=== PATIENT | female | born 1980 | race Caucasian/White ===

== ENCOUNTER 2017-05-04 09:18 | Emergency (ER) | payer OTHER ==
[2017-05-04 09:30] VITALS: BMI 41.1
[2017-05-04 09:33] VITALS: BP 107/83; TEMP 98.5
--- NOTE | 2017-05-04 10:15 | C.PDOC ---
History Of Present Illness 36F hx of arthritis and chronic pain knees c/o right knee pain that started after having intercourse last night. she took naproxen but did not help. she takes percocet for her chronic pain but says she is out of this medication. Time Seen by Provider: 05/04/17 10:08 Chief Complaint (Nursing): Lower Extremity Problem/Injury Past Medical History Vital Signs: Last Vital Signs Temp 98.5 F 05/04/17 09:31 Pulse 80 05/04/17 10:55 Resp 16 05/04/17 10:55 BP 107/83 05/04/17 09:31 Pulse Ox 100 05/04/17 10:55 - Medical History PMH: Anemia, Arthritis, Hypercholesterolemia, Sleep Apnea Denies: Diabetes, Hepatitis, HIV, HTN, Chronic Kidney Disease, Seizures, Sexually Transmitted Disease Surgical History: Endoscopy - [facility] Procedures ESOPHAGOGASTRODUODENOSCOPY [EGD] W/CLOSED BIOPSY (08/09/13) LAPAROSCOPIC VERTICAL (SLEEVE) GASTRECTOMY (12/01/13) OTHER GASTROSCOPY (12/01/13) Family History: States: Other Other Family History: nc - Social History Hx Tobacco Use: No Hx Alcohol Use: No Hx Substance Use: No - Immunization History Hx Tetanus Toxoid Vaccination: No Hx Influenza Vaccination: No Hx Pneumococcal Vaccination: No Review Of Systems Constitutional: Negative for: Fever, Chills Cardiovascular: Negative for: Chest Pain Respiratory: Negative for: Shortness of Breath Gastrointestinal: Negative for: Vomiting Neurological: Negative for: Weakness, Numbness, Headache Physical Exam - Physical Exam Appears: Well, Non-toxic, No Acute Distress Skin: Warm, Dry Cardiovascular: Rhythm Regular Respiratory: No Accessory Muscle Use Extremity: No Deformity, No Swelling, Other (right knee ttp anteriorly. no erythema, swelling, or warmth. rom nl but induces pain. strength/sensation intact in RLE. DP pulse 2+.) ED Course And Treatment O2 Sat by Pulse Oximetry: 98 Disposition - Disposition Referrals: Jean Pierre Morel MD [Staff Provider] - Disposition: HOME/ ROUTINE Disposition Time: 10:40 Condition: GOOD Additional Instructions: Please follow up with the orthopedic doctor. Return to the ER for any worsening symptoms or for any other concerns. Forms: [facility] ([employer]), General Discharge Instructions - Clinical Impression Clinical Impression: Knee pain
[2017-05-04 11:07] VITALS: PULSE 80; RESP 16
--- NOTE | 2017-05-04 13:16 | RAD ---
PROCEDURE: Right Knee Radiographs. HISTORY: pain COMPARISON: None. FINDINGS: BONES: No evidence of acute fracture or dislocation. There is periosteal thickening noted at the proximal portion of the right fibula of uncertain etiology. JOINTS: Mild osteoarthritic changes and small lateral marginal osteophyte lipping are noted. JOINT EFFUSION: None. OTHER FINDINGS: None. IMPRESSION: No evidence of acute fracture or dislocation. Mild osteoarthritic changes. Periosteal thickening noted at the visualized portion of the proximal right fibula
[2017-05-06 18:53] VITALS: O2SAT 98
== END 2017-05-04 10:55 | disposition home or self-care (01) ==
LOC: C.ER 09:18
DX: M25.561 Pain in right knee (principal)
CPT/HCPCS: 73562; 96372; 99284; J1885

== ENCOUNTER 2018-03-09 15:22 | Emergency (ER) | payer OTHER ==
[2018-03-09 15:22] VITALS: BMI 41.1
[2018-03-09] MEDS ORDERED: Sodium Chloride 0.9% 1,000 ML IV ONE (15:53)
[2018-03-09] MEDS ORDERED: Sodium Chloride 0.9% 1,000 ML ONE (16:15)
--- NOTE | 2018-03-09 16:28 | C.PDOC ---
History Of Present Illness 37 y/o female presents to the ER complaining of abdominal pain which has become progressively worse over the past few days. Patient states that she was started on Levaquin by PMD for recently diagnosed colitis.Patient reports that she feels nauseous. Denies having vomiting, fever,chills, dysuria, and hematuria. <Vince Arcos - Last Filed: 03/10/18 18:57> <Ric Rodriguez - Last Filed: 03/10/18 03:26> History Per: Patient History/Exam Limitations: no limitations Onset/Duration Of Symptoms: Days Current Symptoms Are (Timing): Still Present Severity: Moderate <Vince Arcos - Last Filed: 03/10/18 18:57> Time Seen by Provider: 03/09/18 15:41 Chief Complaint (Nursing): Abdominal Pain Past Medical History Vital Signs: Last Vital Signs Temp 98.5 F 03/10/18 01:04 Pulse 72 03/10/18 01:04 Resp 16 03/10/18 01:04 BP 94/58 L 03/10/18 01:04 Pulse Ox 99 03/10/18 01:04 - [facility] Procedures ESOPHAGOGASTRODUODENOSCOPY [EGD] W/CLOSED BIOPSY (08/09/13) LAPAROSCOPIC VERTICAL (SLEEVE) GASTRECTOMY (12/01/13) OTHER GASTROSCOPY (12/01/13) <Ric Rodriguez - Last Filed: 03/10/18 03:26> Reviewed: Historical Data, Nursing Documentation, Vital Signs Vital Signs: Last Vital Signs Temp 98.4 F 03/09/18 15:26 Pulse 109 H 03/09/18 15:26 Resp 20 03/09/18 15:26 BP 123/76 03/09/18 15:26 Pulse Ox 98 03/09/18 15:26 - Medical History PMH: Anemia, Arthritis, Hypercholesterolemia, Sleep Apnea Denies: Diabetes, Hepatitis, HIV, HTN, Chronic Kidney Disease, Seizures, Sexually Transmitted Disease Surgical History: Endoscopy - [facility] Procedures ESOPHAGOGASTRODUODENOSCOPY [EGD] W/CLOSED BIOPSY (08/09/13) LAPAROSCOPIC VERTICAL (SLEEVE) GASTRECTOMY (12/01/13) OTHER GASTROSCOPY (12/01/13) Family History: States: No Known Family Hx - Social History Hx Tobacco Use: No Hx Alcohol Use: No Hx Substance Use: No - Immunization History Hx Tetanus Toxoid Vaccination: No Hx Influenza Vaccination: No Hx Pneumococcal Vaccination: No <Vince Arcos - Last Filed: 03/10/18 18:57> Review Of Systems Except As Marked, All Systems Reviewed And Found Negative. Constitutional: Negative for: Fever, Chills Gastrointestinal: Positive for: Nausea, Abdominal Pain. Negative for: Vomiting, Diarrhea Genitourinary: Negative for: Dysuria, Hematuria <Vince Arcos - Last Filed: 03/10/18 18:57> Physical Exam - Physical Exam Appears: Non-toxic, No Acute Distress Skin: Normal Color, Warm, Dry Head: Atraumatic, Normacephalic Eye(s): bilateral: Normal Inspection Nose: Normal Oral Mucosa: Moist Neck: Supple Chest: Symmetrical Cardiovascular: Rhythm Regular Respiratory: Normal Breath Sounds, No Rales, No Rhonchi, No Wheezing Gastrointestinal/Abdominal: Soft, Tenderness (diffuse tenderness, worse in epigastric region), No Guarding, No Rebound Neurological/Psych: Oriented x3, Normal Speech <Vince Arcos - Last Filed: 03/10/18 18:57> ED Course And Treatment - Laboratory Results Result Diagrams: 03/09/18 16:51 03/09/18 16:51 Pulse Ox Interpretation: Normal Progress Note: Pt was seen and examined by dr segura-relationship mgr. Ok to dc and follow up in clinic Reevaluation Time: 03:28 Reassessment Condition: Improved <Ric Rodriguez - Last Filed: 03/10/18 03:26> - Laboratory Results Result Diagrams: 03/09/18 16:51 03/09/18 16:51 O2 Sat by Pulse Oximetry: 98 (RA) Pulse Ox Interpretation: Normal - CT Scan/US CT ABD/Pelvis Other Rad Studies (CT/US): Read By Radiologist CT/US Interpretation: FINDINGS: LOWER THORAX: Unremarkable. LIVER: Unr emarkable. No gross lesion or ductal dilatation. GALLBLADDER AND BILE DUCTS: Unremarkable. PANCREAS: Unremarkable. No gross lesion or ductal dilatation. SPLEEN: Unremarkable. ADRENALS: Unremarkable. No mass. KIDNEYS AND URETERS: Unremarkable. No hydronephrosis. No solid mass. VASCULATURE: Unremarkable. No aortic aneurysm. No atherosclerotic calcification or mural plaque present. BOWEL: Postoperative changes related to gastric sleeve procedure. APPENDIX: A normal appendix is not visible. PERITONEUM: Unremarkable. No free fluid. No free air. LYMPH NODES: Unremarkable. No enlarged lymph nodes. BLADDER: Unremarkable. REPRODUCTIVE: Cystic and septated pelvic mass which now measures 8.3 x 10.8 x 13.8 cm. BONES: No acute fracture. OTHER FINDINGS: Stable and presumed postoperative changes anterior low abdominal pelvic wall to the right of the midline unchanged compared to the CT 03/24/2013. IMPRESSION: Complex cystic, septated abdominal pelvic mass likely the sequela of a prior mass identified attributed to the left adnexa on ultrasound study 05/15/2015. On the ultrasound study this measured 5 x 4.6 x 5.8 cm. The mass currently measures 8.3 x 10.8 x 13.8 cm. Pelvic ultrasound may be beneficial for further assessment of clinically indicated. US Pelvis/Transvag. Other Rad Studies (CT/US): Read By Radiologist CT/US Interpretation: Findings. Uterus. Measures 9.86 x 5.02 x 5.64 cm. Normal in size and appearance. No fibroid or other mass lesion seen. Endometrium. Measures 8.2 mm in diameter. Unremarkable. Cervix. No cervical abnormality identified. Right ovary. Measures 3.65 x 2.4 x 2.42 cm. No solid mass. Normal flow. Left ovary. Measures 14.1 x 8.13 x 13.32 cm. No solid mass. Large comp dieudonne cystic mass measures 13.47 x 7.11 x 12.65 cm containing internal complex/solid material. No septations or nodularity,. Free fluid. No significant free fluid noted. Other Findings. None. Impression. Large complex left ovarian cystic mass as above. Follow up with CT A/P and/or pelvic MRI is recommended. Progress Note: Labs,UA, and HCG-Qual. ordered.Patient treated with Zofran IV, Protonix IV, and IV Fluids. <Vince Arcos - Last Filed: 03/10/18 18:57> Medical Decision Making Medical Decision Making: ro uti/renal stone/pyleo- pt on keflex per pmd for presumtive uti pt reassesed. pain resolve.d labs neg. urine ?pos. as pt failure of outpt, recommened admission. pt decliens specificlaly asking for discharge. will change antibiotics and advise close outpt fu and return precautions. culture sent. History Pelvic mass. Comparison None available. Technique TA/TV Findings Uterus Measures 9.86 x 5.02 x 5.64 cm. Normal in size and appearance. No fibroid or other mass lesion seen. Endometrium Measures 8.2 mm in diameter. Unremarkable. Cervix No cervical abnormality identified. Right ovary Measures 3.65 x 2.4 x 2.42 cm. No solid mass. Normal flow. Left ovary Measures 14.1 x 8.13 x 13.32 cm. No solid mass. Large complex cystic mass measures 13.47 x 7.11 x 12.65 cm containing internal complex/solid material. No septations or nodularity, Free fluid No significant free fluid noted. Other Findings None. Impression Large complex left ovarian cystic mass as above. Follow up with CT A/P and/or pelvic MRI is recommended. ct shows large cyst. subsequent US shows large cyst. csae discussed with obgyn dr segura. mirian marsh case endorse to dr rodriguez, pending obgyn eval and rec and final dispo <Vince Arcos - Last Filed: 03/10/18 18:57> Disposition Counseled Patient/Family Regarding: Studies Performed, Diagnosis, Need For Followup <Ric Rodriguez - Last Filed: 03/10/18 03:26> - Disposition Disposition Time: 22:00 <Vince Arcos - Last Filed: 03/10/18 18:57> - Disposition Referrals: [facility] [Outside] [facility] [Outside] Disposition: HOME/ ROUTINE Condition: FAIR Additional Instructions: Please return if symptoms recur. Do follow up with your relationship mgr Prescriptions: RX: Naproxen [Naprosyn] 1 tab PO BID PRN #25 tab PRN Reason: Pain Instructions: Acute Abdomen (Belly Pain), Adult (DC), Ovarian Cyst (DC) Forms: [facility] ([place]) - Clinical Impression Clinical Impression: Left ovarian cyst - Scribe Statement The provider has reviewed the documentation as recorded by the Scribe Angelica Foss Provider Attestation: All medical record entries made by the Scribe were at my direction and personally dictated by me. I have reviewed the chart and agree that the record accurately reflects my personal performance of the history, physical exam, medical decision making, and the department course for this patient. I have also personally directed, reviewed, and agree with the discharge instructions and disposition. <Vince Arcos - Last Filed: 03/10/18 18:57>
[2018-03-09 16:57] LABS: BASO % 0.3 % (0.0-2.0); EOS # 0.2 K/uL (0.0-0.7); EOS % 2.5 % (0.0-4.0); HEMOGLOBIN 10.7 g/dL (11.0-16.0); LYMPH % 24.9 % (20.0-40.0); MEAN CELL VOLUME 77.3 fL (81.0-99.0); MEAN CORPUSCULAR HEMOGLOBIN 25.6 pg (27.0-31.0); MEAN CORPUSCULAR HGB CONC 33.1 g/dL (33.0-37.0); MEAN PLATELET VOLUME 8.6 fL (7.2-11.7); MONO # 0.7 K/uL (0.0-0.8); NEUT % 63.3 % (50.0-75.0); RBC 4.2 Mil/uL (3.80-5.20); RED CELL DISTRIBUTION WIDTH 13.8 % (11.5-14.5)
[2018-03-09 17:04] LABS: INR 1.2; PROTHROMBIN TIME 12.7 SECONDS (9.7-12.2)
[2018-03-09 17:08] LABS: HCG,QUALITATIVE URINE NEGATIVE (NEGATIVE)
[2018-03-09 17:09] LABS: SQUAMOUS EPITHIAL 4 /hpf (0-5); URINE BACTERIA RARE (<OCC); URINE BILIRUBIN NEGATIVE (NEGATIVE); URINE BLOOD NEGATIVE (NEGATIVE); URINE CLARITY Hazy (Clear); URINE COLOR Yellow (YELLOW); URINE GLUCOSE (UA) NORMAL (Normal); URINE LEUKOCYTE ESTERASE NEG Leu/uL (Negative); URINE PROTEIN NEGATIVE (NEGATIVE)
[2018-03-09 17:12] LABS: ALB/GLOB RATIO 1.1 (1.0-2.1); ALBUMIN 4.2 g/dL (3.5-5.0); ALT/SGPT 19 U/L (9-52); AST/SGOT 24 U/L (14-36); BILIRUBIN,DIRECT 0.3 mg/dL (0.0-0.4); BLOOD UREA NITROGEN 17 mg/dL (7-17); CALCIUM 8.5 mg/dl (8.6-10.4); GFR NON-AFRICAN AMERICAN > 60; LIPASE 45 U/L (23-300)
[2018-03-09] MEDS ORDERED: Iodixanol 320 MG/ML 100 ML BOTTLE IV ONE (18:01)
--- NOTE | 2018-03-09 19:02 | CT ---
Date of service: 03/09/2018 PROCEDURE: CT Abdomen and Pelvis with contrast HISTORY: abd pain, nausea vomiting h/o gastic sleeve Negative test (concurrent with this examination). COMPARISON: 03/24/2013 CT abdomen and pelvis 05/05/2015 pelvic ultrasound. Summary of findings on the comparison examination: Complex left ovarian cyst with septations 5 x 5.9 x 4.6 cm TECHNIQUE: Intravenous contrast dose: 100 cc Visipaque 320. Radiation dose: Total exam DLP = 1167.71 mGy-cm. This CT exam was performed using one or more of the following dose reduction techniques: Automated exposure control, adjustment of the mA and/or kV according to patient size, and/or use of iterative reconstruction technique. FINDINGS: LOWER THORAX: Unremarkable. LIVER: Unremarkable. No gross lesion or ductal dilatation. GALLBLADDER AND BILE DUCTS: Unremarkable. PANCREAS: Unremarkable. No gross lesion or ductal dilatation. SPLEEN: Unremarkable. ADRENALS: Unremarkable. No mass. KIDNEYS AND URETERS: Unremarkable. No hydronephrosis. No solid mass. VASCULATURE: Unremarkable. No aortic aneurysm. No atherosclerotic calcification or mural plaque present. BOWEL: Postoperative changes related to gastric sleeve procedure. APPENDIX: A normal appendix is not visible. PERITONEUM: Unremarkable. No free fluid. No free air. LYMPH NODES: Unremarkable. No enlarged lymph nodes. BLADDER: Unremarkable. REPRODUCTIVE: Cystic and septated pelvic mass which now measures 8.3 x 10.8 x 13.8 cm BONES: No acute fracture. OTHER FINDINGS: Stable and presumed postoperative changes anterior low abdominal pelvic wall to the right of the midline unchanged compared to the CT 03/24/2013. IMPRESSION: Complex cystic, septated abdominal pelvic mass likely the sequela of a prior mass identified attributed to the left adnexa on ultrasound study 05/15/2015. On the ultrasound study this measured 5 x 4.6 x 5.8 cm. The mass currently measures 8.3 x 10.8 x 13.8 cm. Pelvic ultrasound may be beneficial for further assessment of clinically indicated.
[2018-03-09 22:28] LABS: VENOUS BLOOD GAS PCO2 45 mmHg (40-60); VENOUS BLOOD GAS PO2 19 mm/Hg (30-55); VENOUS BLOOD PH 7.38 (7.32-7.43)
--- NOTE | 2018-03-10 03:27 | CP.PCM.CON ---
History of Present Illness - History of Present Illness History of Present Illness: 37 yo female and Hx of Endometriosis in the past requiring Surgery and presented to ER with c/o of abdominal pain which has become progressively worse over the past few days.Pt states the she was started on Levaquinn by PMD for recently diagnosed colitis. Also c/o of feeling nauseous but denies vomiting, fever, chills, dysuria and or hematuria. Admits to regular menses and states that she had Ovarian cyst in the past that had ressolved spontaneously. Review of Systems - Constitutional Constitutional: As Per HPI - Breasts Breasts: As Per HPI - Reproductive: Female Reproductive:Female: As Per HPI, Cycle > 4 Weeks Between, Light Menses Additional comments: Denies Contraceptives and relates Hx of 2 previous C/S with TL and Sx for Endometriosis. Also admits to a Termination of - Menstruation Menstruation: As Per HPI Past Patient History - Infectious Disease Hx of Infectious Diseases: None - Past Medical History & Family History Past Medical History?: Yes Past Family History: Reviewed and not pertinent - Past Social History Smoking Status: Never Smoked Chewing Tobacco Use: No Cigar Use: No Alcohol: None Drugs: Denies Home Situation {Lives}: With Family Domestic Violence: Negative - CARDIAC Hx Hypercholesterolemia: Yes Hx Hypertension: No - PULMONARY Hx Sleep Apnea: Yes - NEUROLOGICAL Hx Seizures: No - HEENT Hx HEENT Problems: Yes Other/Comment: 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 3 weeks : 3 Para: 2 Termination of : 1 - PSYCHIATRIC Hx Substance Use: No - SURGICAL HISTORY Hx Section: Yes (2002 2004) Hx Tubal Ligation: Yes Other/Comment: Gastri sleeves 2014 - ANESTHESIA Hx Anesthesia: Yes Hx Anesthesia Reactions: No Hx Malignant Hyperthermia: No Meds Home Medications: Home Medication List Medication Instructions Recorded Confirmed Type Naproxen [Naprosyn] 1 tab PO BID PRN #25 tab 03/10/18 Rx Allergies/Adverse Reactions: Allergies Allergy/AdvReac Type Severity Reaction Status Date / Time No Known Allergies Allergy Verified 03/09/18 15:29 Physical Exam - Constitutional Appears: No Acute Distress - Head Exam Head Exam: NORMAL INSPECTION - Respiratory Exam Respiratory Exam: NORMAL BREATHING PATTERN - Cardiovascular Exam Cardiovascular Exam: REGULAR RHYTHM - GI/Abdominal Exam GI & Abdominal Exam: Soft, Tenderness Additional comments: No Guarding, No Rebound - Exam Speculum exam: NORMAL SPECULUM EXAM Bimanual exam: Adenexal Mass - Extremities Exam Extremities exam: Positive for: normal inspection - Neurological Exam Neurological exam: Alert, Oriented x3 - Psychiatric Exam Psychiatric exam: Normal Affect, Normal Mood - Skin Skin Exam: Dry, Intact, Normal Color Results - Vital Signs Recent Vital Signs: Last Vital Signs Temp 98.5 F 03/10/18 01:04 Pulse 72 03/10/18 01:04 Resp 16 03/10/18 01:04 BP 94/58 L 03/10/18 01:04 Pulse Ox 99 03/10/18 01:04 - Labs Result Diagrams: 03/09/18 16:51 03/09/18 16:51 Labs: Laboratory Results - last 24 hr 03/09/18 03/09/18 03/09/18 16:51 16:51 16:51 WBC 8.0 RBC 4.20 Hgb 10.7 L Hct 32.5 L MCV 77.3 L MCH 25.6 L MCHC 33.1 RDW 13.8 Plt Count 185 MPV 8.6 Neut % (Auto) 63.3 Lymph % (Auto) 24.9 [place] % (Auto) 9.0 Eos % (Auto) 2.5 Baso % (Auto) 0.3 Neut # (Auto) 5.0 Lymph # (Auto) 2.0 [place] # (Auto) 0.7 Eos # (Auto) 0.2 Baso # (Auto) 0.0 PT 12.7 H INR 1.2 APTT 31 pO2 VBG pH VBG pCO2 VBG HCO3 VBG Total CO2 VBG O2 Sat (Calc) VBG Base Excess VBG Potassium Glucose Lactate Sodium 139 Potassium 3.8 Chloride 105 Carbon Dioxide 25 Anion Gap 13 BUN 17 Creatinine 0.7 Est GFR ( Amer) > 60 Est GFR (Non-Af Amer) > 60 Random Glucose 85 Calcium 8.5 L Total Bilirubin 0.3 Direct Bilirubin 0.3 AST 24 ALT 19 Alkaline Phosphatase 67 Total Protein 7.9 Albumin 4.2 Globulin 3.8 Albumin/Globulin Ratio 1.1 Lipase 45 Venous Blood Potassium Urine Color Urine Clarity Urine pH Ur Specific [place] Urine Protein Urine Glucose (UA) Urine Ketones Urine Blood Urine Nitrate Urine Bilirubin Urine Urobilinogen Ur Leukocyte Esterase Urine WBC (Auto) Urine RBC (Auto) Ur Squamous Epith Cells Urine Bacteria Urine HCG, Qual 03/09/18 03/09/18 16:51 22:25 WBC RBC Hgb Hct MCV MCH MCHC RDW Plt Count MPV Neut % (Auto) Lymph % (Auto) [place] % (Auto) Eos % (Auto) Baso % (Auto) Neut # (Auto) Lymph # (Auto) [place] # (Auto) Eos # (Auto) Baso # (Auto) PT INR APTT pO2 19 L VBG pH 7.38 VBG pCO2 45 VBG HCO3 23.8 VBG Total CO2 28.0 VBG O2 Sat (Calc) 34.8 L VBG Base Excess 1.0 VBG Potassium 3.4 L Glucose 107 H Lactate 1.1 Sodium 141.0 Potassium Chloride 111.0 H Carbon Dioxide Anion Gap BUN Creatinine Est GFR ( Amer) Est GFR (Non-Af Amer) Random Glucose Calcium Total Bilirubin Direct Bilirubin AST ALT Alkaline Phosphatase Total Protein Albumin Globulin Albumin/Globulin Ratio Lipase Venous Blood Potassium 3.4 L Urine Color Yellow Urine Clarity Hazy Urine pH 5.0 Ur Specific [place] 1.031 H Urine Protein Negative Urine Glucose (UA) Normal Urine Ketones Negative Urine Blood Negative Urine Nitrate Negative Urine Bilirubin Negative Urine Urobilinogen 2.0 H Ur Leukocyte Esterase Neg Urine WBC (Auto) 2 Urine RBC (Auto) 1 Ur Squamous Epith Cells 4 Urine Bacteria Rare Urine HCG, Qual Negative - Imaging and Cardiology CT scan - abdomen Status: Report reviewed by me Additional comment: Left Ovary 14.1 in largest dimension with a complex solid and cystic mass. uterus nl size and endometrium, cervix and rigjt ovary WNL. Assessment & Plan - Assessment and Plan (Free Text) Assessment: 1. Large Left ovarian cyst with solid and cystic component that could be a benign or malignant neoplasm and patient aware. 2. Abdominal pain that improved with Tylenol po and with Hx of Colitis 3. Hemodynamically stable 4. No Surgical abdomen at present and pt requested to be discharge home to follow up with her OBGYN in AM 5. Advised to seek care [facility] and verbalized understanding Plan: As noted under Assessment Thank you for consultation. Will sign off - Date & Time Date: 03/10/18 Time: 03:50
[2018-03-10 03:37] VITALS: BP 111/69; PULSE 71; RESP 20; TEMP 97.6; O2SAT 98
--- NOTE | 2018-03-10 11:35 | US ---
Date of service: 03/09/2018 HISTORY: pelvic mass COMPARISON: CT abdomen and pelvis with IV contrast performed 03/09/18. Pelvic ultrasound performed 05/05/15 TECHNIQUE: Real-time transabdominal pelvic ultrasound was performed. In addition a transvaginal pelvic ultrasound was necessary to better depict pelvic anatomy. FINDINGS: UTERUS: Measures 9.9 x 5.0 x 5.6 cm. Anteverted. ENDOMETRIUM: Measures 8 mm in diameter. CERVIX: No cervical abnormality identified. RIGHT OVARY: Measures 3.7 x 2.4 x 2.4 cm. Blood flow is demonstrated. LEFT OVARY: Measures 14.1 x 8.1 x 13.3 cm. Blood flow is demonstrated. Complex left adnexal mass measures 13.5 x 7.1 x 12.7 cm and contains solid and cystic components. FREE FLUID: No significant free fluid noted. OTHER FINDINGS: None. IMPRESSION: Large complex left adnexal mass with solid and cystic components. Recommend [employer] consultation and pelvic MRI without and with IV contrast for further evaluation. Preliminary impression was provided by [facility].
== END 2018-03-10 03:37 | disposition home or self-care (01) ==
LOC: C.ER 15:22
DX: N83.202 Unspecified ovarian cyst, left side (principal); E78.00 Pure hypercholesterolemia, unspecified
CPT/HCPCS: 74177; 76830; 76856; 80053; 81001; 82248; 82803; 83690; 84703; 85025; 85610; 85730; 96361; 96374; 96375; 99285; C9113; J2405; J7030; Q9967